=== PATIENT | female | born 1945 | race Asian ===

== ENCOUNTER 2016-10-04 09:32 | Outpatient (CLI) | payer OTHER, MEDICAID ==
[2016-10-04] MEDS ORDERED: BARIUM SULFATE 135 ML SUSP.RECON (E-Z-HD) PO ONE (09:57)
== END 2016-10-04 18:41 | disposition home or self-care (01) ==
LOC: SRD 09:32
PROVIDERS: ATTEND Otolaryngology
DX: R13.10 Dysphagia, unspecified (principal)
CPT/HCPCS: 74230; 92611-GN